=== PATIENT | male | born 1935 | race Caucasian/White ===

== ENCOUNTER 2020-05-09 09:23 | Day surgery (SDC) | payer MEDICARE, BC ==
[2020-05-08 13:24] LABS: BASOPHILS % (AUTO) 0.6 % (0-1); EOSINOPHILS # (AUTO) 0.1 X10'3 (0-0.9); HEMATOCRIT 46.8 % (42.0-52.0); HEMOGLOBIN 15.6 g/dl (14.0-17.9); LYMPHOCYTES # (AUTO) 1.6 X10'3 (1.1-4.8); LYMPHOCYTES % (AUTO) 20.4 % (21-51); MEAN CORPUSCULAR HEMOGLOBIN 29.4 PG (27.0-31.0); MEAN CORPUSCULAR HGB CONC 33.3 g/dL (33.0-36.5); MEAN CORPUSCULAR VOLUME 88.2 FL (78-98); MONOCYTES # (AUTO) 0.7 X10'3 (0-0.9); MONOCYTES % (AUTO) 9.4 % (2-12); NEUTROPHILS # (AUTO) 5.2 X10'3 (1.8-7.7); NEUTROPHILS % (AUTO) 68.6 % (42-75); PLATELET COUNT 216 X10'3 (140-440); WHITE BLOOD COUNT 7.6 X10'3 (4.5-11.0)
[2020-05-08 13:44] LABS: ALBUMIN 3.9 G/DL (3.4-5.0); ANION GAP 8 (8-16); BLOOD UREA NITROGEN 18 MG/DL (7-18); BUN/CREATININE RATIO 16.1 (5.4-32.0); CHLORIDE 107 MMOL/L (99-107); CREATININE 1.12 MG/DL (0.60-1.10); GLUCOSE 90 MG/DL (70-104); POTASSIUM 3.5 MMOL/L (3.5-5.1); SODIUM 143 MMOL/L (135-145); TOTAL CARBON DIOXIDE 28.1 MMOL/L (24-32); eGFR 63 ML/MIN
[2020-05-09] VITALS (10 sets, daily range): BP systolic 138–178; BP diastolic 90–115
[~2020-05-09] VITALS: Ht 182.9 cm; Wt 88.3 kg
[2020-05-09] MEDS ORDERED: normal saline 1000ml 1,000 ML IV SCH (09:55)
[2020-05-09] MEDS ORDERED: fentaNYL/PF 50MCG/1 ML 2ML syringe IV ONE (09:55)
[2020-05-09] MEDS ORDERED: MIDAZolam 1mg/ml 10ml vial IV ONE (09:55)
[2020-05-09] MEDS ORDERED: FERR-116 PO (10:02)
[2020-05-09] MEDS ORDERED: DIGO250T4 PO (10:02)
[2020-05-09] MEDS ORDERED: MAGN400C PO (10:02)
[2020-05-09] MEDS ORDERED: MECL-184 PO (10:02)
[2020-05-09] MEDS ORDERED: POTA20TA10 PO (10:02)
[2020-05-09] MEDS ORDERED: ATOR10TA87 PO (10:13)
[2020-05-09] MEDS ORDERED: DILT300T11 PO (10:13)
[2020-05-09] MEDS ORDERED: focus factor (10:13)
[2020-05-09] MEDS ORDERED: APIX5TAB3 PO (10:13)
[2020-05-09] MEDS ORDERED: CALC-336 PO (10:13)
[2020-05-09] MEDS ORDERED: ONDA4TAB12 PO (10:13)
[2020-05-09] MEDS ORDERED: AMIO200T62 PO (10:13)
[2020-05-09] MEDS ORDERED: FURO-149 PO (10:13)
== END 2020-05-09 12:25 | disposition home or self-care (01) ==
LOC: SSTAY O 09:23
PROVIDERS: ATTEND Internal Medicine Cardiovascular Disease
DX: I48.92 Unspecified atrial flutter (principal); I50.32 Chronic diastolic (congestive) heart failure; I34.0 Nonrheumatic mitral (valve) insufficiency; I25.10 Atherosclerotic heart disease of native coronary artery without angina pectoris; I48.20 Chronic atrial fibrillation, unspecified; I11.0 Hypertensive heart disease with heart failure; E78.49 Other hyperlipidemia; E78.00 Pure hypercholesterolemia, unspecified; Z88.0 Allergy status to penicillin; Z95.5 Presence of coronary angioplasty implant and graft; Z79.899 Other long term (current) drug therapy
CPT/HCPCS: 36415; 80048; 80162; 83880; 85025; 92960; 93005; 99152; 99153; J2250; J3010; J7030

== ENCOUNTER 2020-06-08 09:06 | Day surgery (SDC) | payer MEDICARE, BC ==
[2020-06-05 10:27] LABS: BASOPHILS % (AUTO) 0.8 % (0-1); EOSINOPHILS # (AUTO) 0.1 X10'3 (0-0.9); EOSINOPHILS % (AUTO) 1.2 % (0-6); HEMATOCRIT 46.5 % (42.0-52.0); HEMOGLOBIN 15.7 g/dl (14.0-17.9); LYMPHOCYTES # (AUTO) 1.1 X10'3 (1.1-4.8); LYMPHOCYTES % (AUTO) 20.1 % (21-51); MEAN CORPUSCULAR HEMOGLOBIN 30.3 PG (27.0-31.0); MEAN CORPUSCULAR HGB CONC 33.8 g/dL (33.0-36.5); MEAN CORPUSCULAR VOLUME 89.7 FL (78-98); MEAN PLATELET VOLUME 8.6 FL (7.4-10.4); MONOCYTES # (AUTO) 0.5 X10'3 (0-0.9); MONOCYTES % (AUTO) 8.7 % (2-12); NEUTROPHILS # (AUTO) 3.9 X10'3 (1.8-7.7); NEUTROPHILS % (AUTO) 69.2 % (42-75); PLATELET COUNT 233 X10'3 (140-440); RED BLOOD COUNT 5.18 X10'6 (4.70-6.10); RED CELL DISTRIBUTION WIDTH 15.6 % (11.5-14.5); WHITE BLOOD COUNT 5.6 X10'3 (4.5-11.0)
[2020-06-05 10:50] LABS: ALANINE AMINOTRANSFERASE 30 U/L (12-78); ALBUMIN 3.9 G/DL (3.4-5.0); ALBUMIN/GLOBULIN RATIO 1.6 (1.1-1.5); ALKALINE PHOSPHATASE 96 IU/L (46-116); ANION GAP 6 (8-16); ASPARTATE AMINO TRANSFERASE 20 U/L (10-37); BILIRUBIN,TOTAL 0.8 MG/DL (0.1-1.0); BLOOD UREA NITROGEN 16 MG/DL (7-18); BUN/CREATININE RATIO 12.8 (5.4-32.0); CALCIUM 8.8 MG/DL (8.5-10.1); CHLORIDE 105 MMOL/L (99-107); CREATININE 1.25 MG/DL (0.60-1.10); GLUCOSE 131 MG/DL (70-104); POTASSIUM 3.5 MMOL/L (3.5-5.1); SODIUM 140 MMOL/L (135-145); TOTAL CARBON DIOXIDE 29.2 MMOL/L (24-32); TOTAL PROTEIN 6.4 G/DL (6.4-8.2); eGFR 55 ML/MIN
[2020-06-08] VITALS (14 sets, daily range): BP systolic 119–171; BP diastolic 85–117
[~2020-06-08] VITALS: Ht 177.8 cm; Wt 88.0 kg
[~2020-06-08 09:06] MED LIST: AMIO200T62 PO; APIX5TAB3 PO; ATOR10TA87 PO; CALC-336 PO; DIGO250T4 PO; DILT300T11 PO; FERR-116 PO; FURO-149 PO; MAGN400C PO; MECL-184 PO; ONDA4TAB12 PO; POTA20TA10 PO; focus factor
[2020-06-08] MEDS ORDERED: acetylcysteine 200 MG/ml 4ml vial PO SCH (09:27)
[2020-06-08] MEDS ORDERED: normal saline 1,000 ML IV SCH (09:30)
[2020-06-08] MEDS ORDERED: LORazepam 0.5 MG tablet PO PRN (09:30)
[2020-06-08] MEDS ORDERED: methylPREDNISolone sod succ 125mg/2ml vial IV PRN (09:30)
[2020-06-08] MEDS ORDERED: diphenhydrAMINE 25mg capsule PO PRN (09:30)
[2020-06-08 10:19] LABS: BASOPHILS # (AUTO) 0.1 X10'3 (0-0.2); BASOPHILS % (AUTO) 0.8 % (0-1); EOSINOPHILS # (AUTO) 0.1 X10'3 (0-0.9); HEMATOCRIT 50.2 % (42.0-52.0); HEMOGLOBIN 16.8 g/dl (14.0-17.9); LYMPHOCYTES % (AUTO) 15.8 % (21-51); MEAN CORPUSCULAR HGB CONC 33.5 g/dL (33.0-36.5); MEAN CORPUSCULAR VOLUME 89.7 FL (78-98); MEAN PLATELET VOLUME 8.4 FL (7.4-10.4); MONOCYTES # (AUTO) 0.4 X10'3 (0-0.9); MONOCYTES % (AUTO) 6.7 % (2-12); NEUTROPHILS # (AUTO) 4.9 X10'3 (1.8-7.7); NEUTROPHILS % (AUTO) 75.7 % (42-75); PLATELET COUNT 246 X10'3 (140-440); RED CELL DISTRIBUTION WIDTH 15.7 % (11.5-14.5); WHITE BLOOD COUNT 6.4 X10'3 (4.5-11.0)
[2020-06-08] MEDS ORDERED: fentaNYL/PF 50MCG/1 ML 2ML syringe ONE (10:20)
[2020-06-08] MEDS ORDERED: midazolam 2 mg/2 ml injection ONE ×2 (10:20→11:14)
[2020-06-08] MEDS ORDERED: iohexol 350 MG/ML 50ML vial IV ONE ×2 (10:20→11:52)
[2020-06-08] MEDS ORDERED: iohexol 350MG/ML 100ml bottle IV ONE (10:20)
[2020-06-08] MEDS ORDERED: LIDOcaine 1% (10mg/ml)w/preservative injection 20ml MDV ONE (10:20)
[2020-06-08 10:32] LABS: ALBUMIN 4.6 G/DL (3.4-5.0); ANION GAP 8 (8-16); BLOOD UREA NITROGEN 19 MG/DL (7-18); BUN/CREATININE RATIO 16.1 (5.4-32.0); CALCIUM 9.3 MG/DL (8.5-10.1); CHLORIDE 104 MMOL/L (99-107); CREATININE 1.18 MG/DL (0.60-1.10); GLUCOSE 99 MG/DL (70-104); POTASSIUM 3.6 MMOL/L (3.5-5.1); SODIUM 142 MMOL/L (135-145); TOTAL CARBON DIOXIDE 29.8 MMOL/L (24-32); eGFR 59 ML/MIN
== END 2020-06-08 17:00 | disposition home or self-care (01) ==
LOC: SSTAY O 09:06
PROVIDERS: ATTEND Internal Medicine Cardiovascular Disease
DX: I48.20 Chronic atrial fibrillation, unspecified (principal); I08.1 Rheumatic disorders of both mitral and tricuspid valves; I25.10 Atherosclerotic heart disease of native coronary artery without angina pectoris; I11.0 Hypertensive heart disease with heart failure; I50.32 Chronic diastolic (congestive) heart failure; E78.00 Pure hypercholesterolemia, unspecified; Z88.0 Allergy status to penicillin; Z79.899 Other long term (current) drug therapy; Z95.5 Presence of coronary angioplasty implant and graft
CPT/HCPCS: 36415; 71046; 80048; 80053; 83880; 85025; 85610; 93306; 93460; 99152; 99153; C1769; J1644; J2001; J2250; J3010; J7030; Q0163; Q9967; A4620; A6258; C1751